=== PATIENT | male | born 1965 | race Hispanic/Latino ===

== ENCOUNTER 2018-03-22 06:29 | Day surgery (SDC) | payer BC ==
[2018-03-22] VITALS (8 sets, daily range): BP systolic 95–126; BP diastolic 53–85
[~2018-03-22] VITALS: Ht 177.8 cm; Wt 81.6 kg
[2018-03-22] MEDS ORDERED: SODIUM CHLORIDE 0.9% 1000ML 1,000 ML IV ONE (06:58)
[2018-03-22] MEDS ORDERED: PROPOFOL 10 MG/ML 20ML VIAL IV ONE (07:23)
[2018-03-22] MEDS ORDERED: LIDOCAINE HCL-MPF 2% 5ML VIAL ONE (07:23)
== END 2018-03-22 08:25 | disposition home or self-care (01) ==
LOC: DAH 06:29 → ENDO 06:29
PROVIDERS: ATTEND Internal Medicine
DX: Z12.11 Encounter for screening for malignant neoplasm of colon (principal); K63.5 Polyp of colon; K62.1 Rectal polyp; K64.0 First degree hemorrhoids
CPT/HCPCS: 45380; 88305; A4606; J2704; J3490; J7030